=== PATIENT | male | born 1960 | race Caucasian/White ===

== ENCOUNTER 2016-12-29 06:03 | Day surgery (SDC) | payer OTHER ==
[~2016-12-29] VITALS: Ht 185.4 cm; Wt 100.9 kg
[2016-12-29] MEDS ORDERED: SODIUM CHLORIDE 0.9% 1,000 ML IV ONE ×2 (06:14→06:15)
[2016-12-29] MEDS ORDERED: NICO21T TD (06:30)
[2016-12-29] MEDS ORDERED: PRED10 PO (06:30)
[2016-12-29] MEDS ORDERED: FAMO20 PO (06:30)
[2016-12-29] MEDS ORDERED: CHOL20004 PO (06:30)
[2016-12-29] MEDS ORDERED: ALBU8.5H IH (06:30)
[2016-12-29] MEDS ORDERED: MOME13HF IH (06:30)
[2016-12-29] MEDS ORDERED: FLUT16H NASAL (06:30)
[2016-12-29] MEDS ORDERED: DOXY100C40 PO (06:30)
[2016-12-29] MEDS ORDERED: MONT10TA21 PO (06:30)
[2016-12-29] MEDS ORDERED: TERB250 PO (06:30)
[2016-12-29] MEDS ORDERED: TEST100V11 INJ (06:47)
[2016-12-29] MEDS ORDERED: FentaNYL CITRATE-PF 100 MCG/2 ML VIAL ONE (06:56)
[2016-12-29] MEDS ORDERED: MIDAZOLAM HCL 2 MG/2 ML VIAL ONE (06:56)
[2016-12-29] MEDS ORDERED: MethylPREDNISolone SOD SUCC 125 MG/2 ML VIAL IVP ONE (09:00)
[2016-12-29] MEDS ORDERED: MethylPREDNISolone SOD SUCC 125 MG/2 ML VIAL ONE (09:16)
[2016-12-29] MEDS ORDERED: ALBUTEROL SULFATE 2.5 MG/0.5 ML NEB SOLUTION NEB ONE (16:52)
[2016-12-29] MEDS ORDERED: LIDOCAINE HCL 4% 50 ML SOLUTION TP ONE (16:52)
[2016-12-29] MEDS ORDERED: BENZOCAINE 20% 50 MCG/SPRAY 57 GM TP ONE (16:52)
[2016-12-29] MEDS ORDERED: LIDOCAINE HCL 2% 30 ML JELLY TP ONE (16:52)
[2016-12-29] MEDS ORDERED: OXYGEN THERAPY IH SCH (20:00)
== END 2016-12-29 10:10 | disposition home or self-care (01) ==
LOC: SURGERY 06:03
PROVIDERS: ATTEND Internal Medicine Critical Care Medicine
DX: J38.4 Edema of larynx (principal); B37.0 Candidal stomatitis; M54.9 Dorsalgia, unspecified; M54.30 Sciatica, unspecified side; K21.9 Gastro-esophageal reflux disease without esophagitis; F17.210 Nicotine dependence, cigarettes, uncomplicated; Z88.0 Allergy status to penicillin; Z72.89 Other problems related to lifestyle; Z98.890 Other specified postprocedural states; Z87.09 Personal history of other diseases of the respiratory system
CPT/HCPCS: 31623; 31624; 71010; 87015; 87070; 87101; 87205; 87220; J2250; J2930; J3010; J7030; 87147; 88108; 88312